=== PATIENT | female | born 1985 | race Caucasian/White ===

== ENCOUNTER → 2016-10-24 | Outpatient (REF) | payer OTHER | LOC: M LAB REF 17:07 | PROVIDERS: ATTEND Obstetrics & Gynecology | DX: Z36 Encounter for antenatal screening of mother (principal); Z3A.00 Weeks of gestation of pregnancy not specified ==

== ENCOUNTER → 2016-11-06 | Outpatient (CLI) | payer OTHER ==
[~2016-11-06] MED LIST: ACET50TA PO; PRENTAB9 PO
[2016-11-06 19:34] LABS: MEAN CORPUSCULAR HEMOGLOBIN 28.4 pg (27.0-33.0); MEAN CORPUSCULAR HGB CONC 33.4 g/dl (32.0-36.5); MEAN CORPUSCULAR VOLUME 84.8 fl (80.0-96.0); WHITE BLOOD COUNT 7.5 K/mm3 (4.0-10.0)
[2016-11-06 19:36] LABS: ALT/SGPT 20 U/L (12-78); AST/SGOT 15 U/L (15-37); BILIRUBIN,TOTAL 0.3 MG/DL (0.2-1.0); CREATININE FOR GFR 0.55 MG/DL (0.55-1.02); GLOMERULAR FILTRATION RATE > 60.0 (>60); URIC ACID 3.8 MG/DL (2.6-6.0)
== END ==
LOC: M SMT 15:52
PROVIDERS: ATTEND Advanced Practice Midwife
DX: O16.3 Unspecified maternal hypertension, third trimester (principal); Z3A.00 Weeks of gestation of pregnancy not specified

== ENCOUNTER 2016-11-09 15:19 | Inpatient (IN) | payer OTHER ==
[~2016-11-09] VITALS: Ht 160 cm; Wt 83.0 kg
[2016-11-09] MEDS ORDERED: PRENTAB9 PO (15:25)
[2016-11-09] MEDS ORDERED: ACET50TA PO (15:25)
[2016-11-09 15:33] VITALS: BP 135/84
[2016-11-09 16:25] LABS: MEAN CORPUSCULAR HEMOGLOBIN 28.4 pg (27.0-33.0); MEAN CORPUSCULAR HGB CONC 33.5 g/dl (32.0-36.5); MEAN CORPUSCULAR VOLUME 84.6 fl (80.0-96.0); RED CELL DISTRIBUTION WIDTH 13.1 % (11.5-14.5); WHITE BLOOD COUNT 9.3 K/mm3 (4.0-10.0)
[2016-11-09 17:03] VITALS: BP 123/83
[2016-11-09] MEDS: miSOPROStol 50 MCG 1/2 TAB (S0191) PO SCH (17:17)
[2016-11-09 18:24] VITALS: BP 116/76
[2016-11-09 20:13] VITALS: BP 118/71
--- NOTE | 2016-11-09 21:40 | HPE ---
DATE OF ADMISSION: 11/09/2016 REASON FOR ADMISSION: Induction of labor for gestational hypertension. HISTORY OF PRESENT ILLNESS: Mrs. Guthrie is a 31-year-old 3, para 1, who presents at 38 weeks 4 days estimated gestational age by her last menstrual period and confirmed by first trimester ultrasound for induction of labor secondary to gestational hypertension. Her course was unremarkable until 11/07/2016, at which time she was diagnosed with gestational hypertension based on mild ranged blood pressures. PAST MEDICAL HISTORY: None. PAST OBSTETRICAL HISTORY: She is 3, para 1. She has had one term vaginal delivery, which was complicated by gestational diabetes, as well as shoulder dystocia with a fracture of the baby's clavicle. MEDICATIONS: Include vitamins. ALLERGIES: She has no known drug allergies. PAST SURGICAL HISTORY: Oral surgery and a LEEP. SOCIAL HISTORY: She denies any alcohol, tobacco or drug use during her . PHYSICAL EXAMINATION: VITAL SIGNS: Stable. She is afebrile. She has a category 1 heart rate tracing with some contractions on tocodynamometry. GENERAL APPEARANCE: Well appearing. No acute distress. LUNGS: Clear to auscultation bilaterally. CARDIOVASCULAR: Regular rate and rhythm. ABDOMEN: Soft, gravid, nontender. Estimated weight is 3600 grams. CERVICAL EXAM: She is 1 cm dilated, 25% effaced, -3 station. LABORATORY DATA: Blood type is O positive, antibody screen is negative, Rubella is immune. RPR is nonreactive. Hepatitis surface antigen is negative. HIV is negative. Hepatitis C is nonreactive. Chlamydia and Gonorrhea screens were negative. She had a normal one-hour Glucola. She is Group B streptococcus (GBS) negative. ASSESSMENT: 1. Mrs. Guthrie is a 31-year-old, 3, para 1 at 38 weeks 4 days estimated gestational age with gestational hypertension, plan for induction. 2. Reassuring status. PLAN: 1. Admit to labor and delivery. Complete blood count (CBC), RPR, type and screen. 2. The patient has been thoroughly counseled in regard to induction of labor. Discussed medications, as well as procedures performed. She has been verbally consented for emergency surgery, blood products, anesthesia and desires to proceed with admission. 3. We will initiate her induction with 50 mcg of oral misoprostol.
[2016-11-09 22:02] VITALS: BP 125/69
[2016-11-10] VITALS (16 sets, daily range): BP systolic 101–142; BP diastolic 60–82
[2016-11-10] MEDS: miSOPROStol 50 MCG 1/2 TAB (S0191) PO SCH ×2 (01:47→08:13)
[2016-11-10] MEDS ORDERED: PROMETHAZINE INJ 25 MG/ML VIAL (J2550) IV ONE ×2 (05:30→12:00)
[2016-11-10] MEDS ORDERED: BUTORPHANOL 2 MG/ML INJ (J0595) IV ONE ×2 (05:30→12:00)
[2016-11-10] MEDS ORDERED: OXYTOCIN 30 UNITS IN 0.9% NaCl 500ML IV BAG (J2590) As Ordered ONE (12:36)
[2016-11-10] MEDS ORDERED: NALOXONE INJ 0.4 MG/1 ML VIAL (J2310) As Ordered ONE (12:37)
[2016-11-10] MEDS ORDERED: OXYTOCIN DRIP 30 UNITS in APPROPRIATE DILUENT 1 EA IV SCH (13:22)
[2016-11-10] MEDS ORDERED: OXYTOCIN INJ 10 UNITS/ML VIAL (J2590) IM ONE (13:30)
[2016-11-10] MEDS ORDERED: MEASLES,MUMPS,RUBELLA VACCINE INJ (MMR-II) (90707) SC SCH (13:30)
[2016-11-10] MEDS ORDERED: LIDOCAINE 1% MDV INJ 50 ML VIAL INFIL ONE (13:30)
[2016-11-10] MEDS ORDERED: ACETAMINOPHEN 500 MG TAB PO PRN (13:30)
[2016-11-10] MEDS ORDERED: DIBUCAINE 1% OINTMENT 30GM TOP PRN (13:30)
--- NOTE | 2016-11-10 13:41 | DN ---
DATE: 11/10/2016 Keyana is a 31-year-old 3, para 2-0-1-2 now who was admitted to labor and delivery for induction of labor due to gestational hypertension. By mouth misoprostol was utilized and labor did ensue. She used IV pain medication to cope with her labor. She had spontaneous rupture of membranes for a small amount of clear odorless fluid at 1200 hours. She progressed to full dilation at 1231 hours. She pushed to a normal spontaneous vaginal delivery of a live female infant in OA position with restitution to LOT position at 1245 hours. There was no nuchal cord. The shoulders delivered spontaneously and the corpus immediately followed. The was placed on the maternal abdomen crying and active. The cord was clamped times two and cut by myself. [place] female was taken to the warmer for evaluation. Cord blood was obtained. Spontaneous expulsion of an intact placenta with three-vessel cord by Manuel mechanism was at 1247 hours. Uterine hemostasis achieved with IV Pitocin rapid infusion, uterine fundal massage and Pitocin 10 units IM. Perineum and vagina were inspected noted to have a first-degree midline laceration. The laceration was infiltrated with 1% lidocaine and repaired with #3-0 Rapide in the usual fashion. Estimated blood loss 600 mL, noted following the final sweep of the vagina to remove clot. Of note, the IV appeared to be infiltrated and was restarted to continue to bolus the IV Pitocin. [place] female weighed 2786 grams, 6 pounds 2 ounces, scores 9 and 9. Family has named their daughter Ashly and mom does plan to bottle feed her child. At the close of delivery lap counts, needle counts and instrument counts were correct and verified. EDED
[2016-11-10] MEDS: IBUPROFEN 800 MG TAB PO PRN ×2 (15:12→23:14)
[2016-11-11 06:01] VITALS: BP 133/72
[2016-11-11] MEDS: PRENATAL VITAMIN TAB PO SCH ×2 (07:05→07:39)
[2016-11-11] MEDS: IBUPROFEN 800 MG TAB PO PRN (07:39)
[2016-11-11 18:03] VITALS: BP 129/70
[2016-11-12 06:14] VITALS: BP 121/57
[2016-11-12] MEDS: PRENATAL VITAMIN TAB PO SCH (07:30)
[2016-11-12] MEDS: IBUPROFEN 800 MG TAB PO PRN (07:31)
[2016-11-12] MEDS ORDERED: IBUP-1114 PO (07:34)
== END 2016-11-12 09:45 | disposition home or self-care (01) | DRG 775 ==
LOC: M LDI 15:19 → M OBS 11-10 14:46
PROVIDERS: ADMIT Obstetrics & Gynecology; ATTEND Obstetrics & Gynecology
PROC: 3E0DXGC Introduction of Other Therapeutic Substance into Mouth and Pharynx, External Approach (ICD-10-PCS; 2016-11-09)
PROC: 10E0XZZ Delivery of Products of Conception, External Approach (ICD-10-PCS; principal; 2016-11-10)
PROC: 0HQ9XZZ Repair Perineum Skin, External Approach (ICD-10-PCS; 2016-11-10)
DX: O13.4 Gestational [pregnancy-induced] hypertension without significant proteinuria, complicating childbirth (principal); Z37.0 Single live birth; Z3A.38 38 weeks gestation of pregnancy; O70.0 First degree perineal laceration during delivery

== ENCOUNTER → 2017-01-02 | Day surgery (SDC) | payer OTHER ==
[~2017-01-02] VITALS: Ht 160 cm; Wt 80.3 kg
[~2017-01-02] MED LIST changes: +BUPIVACAINE HCL 0.25% 30 ML VIAL As Ordered ONE; +GLYCOPYRROLATE INJ 0.2 MG/ML 2 ML VIAL As Ordered ONE; +HYDROmorphone HCL 1 MG/ML SYRINGE (J1170) As Ordered ONE; +IBUP-1114 PO; +KETOROLAC 30 MG/ML VIAL (J1885) IV SCH; +KETOROLAC 60 MG/2 ML VIAL (J1885) As Ordered ONE; +LIDOCAINE 2% INJ 100 MG/5 ML SDV (FOR ANES.) As Ordered ONE; +LR 1,000 ML IV ONE; +LR 1,000 ML IV SCH; +METOCLOPRAMIDE INJ 10MG/2ML VIAL (J2765) As Ordered ONE; +METOCLOPRAMIDE INJ 10MG/2ML VIAL (J2765) IV PRN; +MIDAZOLAM INJ 2 MG/2 ML VIAL (J2250) As Ordered ONE; +MORPHINE 2 MG/ML 1ML SYRINGE IV PRN; +NEOSTIGMINE 1MG/ML 5 ML SYRINGE (J2710) As Ordered ONE; +ONDANSETRON 4MG/2ML VIAL (J2405) As Ordered ONE; +ONDANSETRON 4MG/2ML VIAL (J2405) IV PRN; +PERCOCET 5MG/325MG TAB As Ordered ONE; +PERCOCET 5MG/325MG TAB PO PRN; +PROPOFOL 200 MG/20 ML VIAL As Ordered ONE; +RETI0.0215 TOP; +ROCURONIUM BROMIDE 50 MG/5 ML VIAL As Ordered ONE; +[UNRECOGNIZED DRUG - CODE] TOP; +dexameTHASONE 4 MG/ML 1ML VIAL (J1100) As Ordered ONE; +fentaNYL 100 MCG/2 ML INJECTION (J3010) As Ordered ONE; +fentaNYL 100 MCG/2 ML INJECTION (J3010) IV PRN
[2017-01-02 06:21] LABS: MEAN CORPUSCULAR HEMOGLOBIN 27.9 pg (27.0-33.0); MEAN CORPUSCULAR HGB CONC 33.8 g/dl (32.0-36.5); MEAN CORPUSCULAR VOLUME 82.6 fl (80.0-96.0); RED CELL DISTRIBUTION WIDTH 13.7 % (11.5-14.5)
[2017-01-02 06:33] LABS: CONTROL LINE HCG INT CTR LINE PRESENT
--- NOTE | 2017-01-02 08:28 | RO ---
DATE OF PROCEDURE: 01/02/2017 PREOPERATIVE DIAGNOSIS: Satisfied parity with undesired fertility. POSTOPERATIVE DIAGNOSIS: 1. Satisfied parity with undesired fertility. 2. Endometriosis PROCEDURE: Diagnostic operative laparoscopy with bilateral tubal ligation using Filshie clips. SURGEON: Allison Chatterjee MD [employer] OPERATOR: None. ANESTHESIA: General endotracheal anesthesia. ESTIMATED BLOOD LOSS: 5 mL. INTRAVENOUS FLUIDS: 1 liter of lactated Ringer solution. URINE OUTPUT: 300 mL. SPECIMENS: None. OPERATIVE FINDINGS: Patient with a small area of peritoneal endometriosis in the posterior cul-de-sac. Otherwise normal pelvic anatomy to include bilateral adnexa and uterus. Appendix was visualized and appeared to be normal. Normal appearing liver edge. INDICATION FOR OPERATION: This patient is a 31-year-old, 3, para 2, who has expressed satisfied parity and desires permanent sterilization. She has been counseled on alternative contraception and after consultation she desires to proceed with permanent sterilization. DESCRIPTION OF OPERATION: After informed consent was obtained and written content was reviewed, the patient was brought to the operating room where general endotracheal anesthesia was obtained. She was then placed in lithotomy position and was prepped and draped in normal sterile fashion. A time out in the operating room was then performed identifying the patient, the procedure to be performed, as well as drug allergies. A bivalved speculum was then placed revealing the cervix. The anterior lip of the cervix was grasped with a single toothed tenaculum. A Hulka tenaculum was then advanced through the cervical os for means of manipulating the uterus. The single tooth tenaculum as well as speculum was removed. A Diaz catheter was then placed and set to gravity. Gloves were changed and attention was turned to the patient's abdomen where 0.25 % Marcaine was infused in the umbilical region. This area was incised and a 5 mm trocar and sleeve was advanced through this incision. The laparoscope was placed confirming intraabdominal placement. A pneumoperitoneum was then obtained with CO2 gas. A second incision was made. This was in the midline approximately 2 cm above the pubic symphysis. This area was infused with 0.25% Marcaine and an 8 mm trocar and sleeve was advanced through this incision under direct visualization. The abdomen was then surveyed with the above noted findings. Next, using a Filshie clip applicator, the right fallopian tube was followed out to the fimbriated end. A Filshie clip was then placed in the mid isthmus portion with good blanching noted. The Filshie clip applicator was reloaded and in a similar fashion the left fallopian tube was followed out to the fimbriated end. Filshie clip was then applied in the mid isthmic portion of the left fallopian tube with good blanching noted. The pneumoperitoneum was then released. Instruments were removed from the patient's abdomen. Incisions were closed with #4-0 Monocryl and dressed with Dermabond. Hulka tenaculum was then removed. The cervix was inspected and noted to be hemostatic. Diaz catheter was removed. The patient was then taken out of lithotomy position and was awakened from general anesthesia and taken to recovery in stable condition. Counts were correct. MTDD
[2017-01-02 10:35] VITALS: BP 137/83
== END ==
LOC: M SDC 05:41
PROVIDERS: ATTEND Obstetrics & Gynecology
DX: Z30.2 Encounter for sterilization (principal); N80.3 Endometriosis of pelvic peritoneum; G43.909 Migraine, unspecified, not intractable, without status migrainosus; F41.9 Anxiety disorder, unspecified; L70.9 Acne, unspecified; Z79.899 Other long term (current) drug therapy; Z91.040 Latex allergy status
CPT/HCPCS: 36415; 58671; 84703; 85027; 86850; 86900; 86901; A4649; J1100; J1885; J2250; J2405; J2710; J2765; J3010